=== PATIENT | male | born 1985 | race Caucasian/White ===

== ENCOUNTER 2018-04-06 15:32 | Emergency (ER) | payer MEDICAID ==
[~2018-04-06] VITALS: Ht 165.1 cm; Wt 59.1 kg
[2018-04-06 15:56] VITALS: BP 134/90; Ht 165.1 cm; Wt 59.1 kg
[2018-04-06 16:24] LABS: HEMATOCRIT 48.4 % (42.0-54.0); HEMOGLOBIN 17.3 g/dL (13.5-17.5); IMMATURE GRANULOCYTES 0.2 % (0-5); MCH 33.6 pg (26.0-34.0); MCHC 35.7 g/dL (31.0-37.0); MEAN PLATELET VOLUME 9.4 fL (7.4-10.4); PLATELET COUNT 238 10x3/uL (130-400); RBC 5.15 10x6/uL (4.20-6.10); RDW 12.2 % (11.5-14.5); WBC 6.4 10x3/uL (4.8-10.8)
[2018-04-06 16:36] LABS: LYMPHOCYTES 3 % (15-50); MONOCYTES 2 % (2-11); NEUTROPHILS 95 % (40-80)
[2018-04-06 16:40] LABS: ALBUMIN 4.7 g/dL (3.4-5.0); ALKALINE PHOSPHATASE 53 U/L (46-116); ALT (SGPT) 18 U/L (10-68); CALC OSMOLALITY 279 mosm/kg (275-300); CALCIUM 9.8 mg/dL (8.5-10.1); CARBON DIOXIDE 29.1 mmol/L (21.0-32.0); CHLORIDE - SERUM 101 mmol/L (98-107); GLUCOSE 101 mg/dL (74-106); POTASSIUM - SERUM 3.9 mmol/L (3.5-5.1); SODIUM 141 mmol/L (136-145); UREA NITROGEN 10 mg/dL (7-18); eGFR NON AFRICAN AMERICAN > 90 mL/min (90-120)
[2018-04-06 16:57] LABS: THYROID STIMULATING HORMONE 2.09 uIU/mL (0.36-3.74)
[2018-04-06 17:01] LABS: UDS - AMPHET NEGATIVE QUAL (NEGATIVE); UDS - BARB NEGATIVE QUAL (NEGATIVE); UDS - BENZO NEGATIVE QUAL (NEGATIVE); UDS - COCAINE NEGATIVE QUAL (NEGATIVE); UDS - OPIATE NEGATIVE QUAL (NEGATIVE); UDS - PCP NEGATIVE QUAL (NEGATIVE); UDS - THC POSITIVE QUAL (NEGATIVE)
[2018-04-06 17:04] LABS: BASOPHILS 0.2 % (0-2); EOSINOPHILS 1.4 % (0-7)
[2018-04-06 17:25] LABS: APPEARANCE CLEAR (CLEAR); BILIRUBIN NEGATIVE (NEGATIVE); COLOR YELLOW (YELLOW); GLUCOSE 500 mg/dL (NEGATIVE); KETONE NEGATIVE (NEGATIVE); NITRITE NEGATIVE (NEGATIVE); PROTEIN NEGATIVE (NEGATIVE); RED CELLS - URINE 0-5 /hpf (0-5); SPECIFIC GRAVITY 1.025 (1.005-1.020); UROBILINOGEN NORMAL (NORMAL); WHITE CELLS - URINE NSEEN /hpf (0-5)
== END 2018-04-06 17:30 | disposition home or self-care (01) ==
LOC: D.ER 15:32
PROVIDERS: Family Medicine
DX: E16.2 Hypoglycemia, unspecified (principal); F17.200 Nicotine dependence, unspecified, uncomplicated

== ENCOUNTER 2020-09-25 14:41 | Inpatient (IN) | payer SELFPAY ==
[~2020-09-25] VITALS: Ht 165.1 cm; Wt 61.2 kg
[2020-09-25 21:30] VITALS: BP 140/87
[2020-09-25 22:54] LABS: BASOPHILS 0.1 % (0-2); EOSINOPHILS 0.1 % (0-7); HEMATOCRIT 36.7 % (42.0-54.0); HEMOGLOBIN 12.5 g/dL (13.5-17.5); IMMATURE GRANULOCYTES 0.3 % (0-5); LYMPHOCYTE ABS# 1.48 10x3/uL (1.32-3.57); LYMPHOCYTES 14.7 % (15-50); MCH 32.7 pg (26.0-34.0); MCHC 34.1 g/dL (31.0-37.0); MCV 96.1 fL (80.0-100.0); MEAN PLATELET VOLUME 9.5 fL (7.4-10.4); MONOCYTES 7.9 % (2-11); NEUTROPHIL ABS# 7.73 10x3/uL (1.78-5.38); NEUTROPHILS 76.9 % (40-80); PLATELET COUNT 240 10x3/uL (130-400); RBC 3.82 10x6/uL (4.20-6.10); RDW 12.8 % (11.5-14.5); WBC 10.1 10x3/uL (4.8-10.8)
[2020-09-25 23:07] LABS: ALBUMIN 3.3 g/dL (3.4-5.0); ALKALINE PHOSPHATASE 56 U/L (30-120); ALT (SGPT) 31 U/L (10-68); BILIRUBIN - TOTAL 0.53 mg/dL (0.2-1.3); CALC OSMOLALITY 279 mosm/kg (275-300); CALCIUM 8.3 mg/dL (8.5-10.1); CARBON DIOXIDE 27.5 mmol/L (21.0-32.0); CHLORIDE - SERUM 105 mmol/L (98-107); GLUCOSE 117 mg/dL (74-106); LIPASE 59 U/L (73-393); POTASSIUM - SERUM 3.9 mmol/L (3.5-5.1); PROTEIN - SERUM 6.6 g/dL (6.4-8.2); SODIUM 139 mmol/L (136-145); UREA NITROGEN 16 mg/dL (7-18); eGFR NON AFRICAN AMERICAN > 90 mL/min (90-120)
[2020-09-26] VITALS (7 sets, daily range): BP systolic 122–148; BP diastolic 77–88; BMI 29.0
[2020-09-26 05:03] LABS: BASOPHILS 0.1 % (0-2); EOSINOPHILS 0.4 % (0-7); HEMATOCRIT 37.3 % (42.0-54.0); HEMOGLOBIN 12.6 g/dL (13.5-17.5); IMMATURE GRANULOCYTES 0.5 % (0-5); LYMPHOCYTE ABS# 1.64 10x3/uL (1.32-3.57); LYMPHOCYTES 20.6 % (15-50); MCH 32.6 pg (26.0-34.0); MCHC 33.8 g/dL (31.0-37.0); MCV 96.6 fL (80.0-100.0); MEAN PLATELET VOLUME 9.7 fL (7.4-10.4); NEUTROPHIL ABS# 5.67 10x3/uL (1.78-5.38); NEUTROPHILS 71.4 % (40-80); PLATELET COUNT 227 10x3/uL (130-400); RBC 3.86 10x6/uL (4.20-6.10); RDW 12.8 % (11.5-14.5)
[2020-09-26 05:15] LABS: APTT 27.6 SECONDS (22.8-39.4); INR 1.23 (0.85-1.17); PROTIME 14.4 SECONDS (11.6-15.0)
[2020-09-26 05:31] LABS: ALKALINE PHOSPHATASE 47 U/L (30-120); ALT (SGPT) 30 U/L (10-68); BILIRUBIN - TOTAL 0.71 mg/dL (0.2-1.3); CALC OSMOLALITY 278 mosm/kg (275-300); CALCIUM 8.2 mg/dL (8.5-10.1); CARBON DIOXIDE 28.5 mmol/L (21.0-32.0); CHLORIDE - SERUM 105 mmol/L (98-107); CREATINE KINASE 758 UL (21-232); CREATININE - SERUM 0.9 mg/dL (0.6-1.3); GLUCOSE 99 mg/dL (74-106); MAGNESIUM - SERUM 1.9 mg/dL (1.8-2.4); PHOSPHOROUS 3.6 mg/dL (2.5-4.9); PROTEIN - SERUM 6.3 g/dL (6.4-8.2); SODIUM 140 mmol/L (136-145); UREA NITROGEN 13 mg/dL (7-18); eGFR NON AFRICAN AMERICAN > 90 mL/min (90-120)
[2020-09-26 06:03] LABS: CKMB 3.1 U/L (0.0-3.6)
--- NOTE | 2020-09-26 08:00 | NUR ---
PT RECEIVED AWAKE SITTING UP IN BED, COMPLAINTS OF PAIN AT 10/10. UNABLE TO TAKE DEEP BREATH. PAIN MEDS GIVEN, INCENTIVE SPIROMETRY GIVEN AND INSTRUCTED ON USE.
--- NOTE | 2020-09-26 10:00 | NUR ---
DR [place] IN ROOM PLACING CHEST TUBE AT PRESENT.
--- NOTE | 2020-09-26 13:28 | NUR ---
PT WITH COMPLAINTS OF SOB. UNABLE TO TAKE DEEP BREATH. ASSISTED TO STAND WHICH HELPS TO COUGH. SPIT UP SOME THICK, BLOODY SPUTUM. CALL PLACED FOR LIDO PATCH.
--- NOTE | 2020-09-26 22:40 | NUR ---
INITIAL ROUNDS COMPLETED AT 191 HRS. BROTHER AT BEDSIDE. ENCOURAGED PT TO COUGH AND DEEP BREATH EVERY HOUR WHILE AWAKE. SPLINTING DEMONSTRATED. PT STATED UNDERSTANDING. EXPLAINED RATIONALE FOR COUGHING AND DEEP BREATHING TO PREVENT PNEUMONIA. TYENOL #3 PO GIVEN AT 1945 HRS FOR C/O SVERE CP. ASSESSMENT COMPLETED AT 2009 HRS. VSS. SR PER CM HR 91. ALERT AND ORIENTED TO PERSON, PLACE AND TIME. [place]KE. PALPABLE PERIPHERAL PULSES. IV TO LFA SL. LUNGS CTA R SIDE, VERY DIMINISHED L SIDE. PT DECLINES TO WEAR SLING TO L ARM FOR L SCAPULA FX. RATIONALE EXPLAINED. L SIDE VERY TENDER. NO FLAIL CHEAT NOTED. [facility] CT TO L SIDE AT 20CM SUCTION. SCANT 5CC OF BLOODY DRAINAGE NOTED. ASSISTED TO BR AT 1954 HRS. VOIDEDMODERATE AMOUNT OF YELLOW URINE. ASSISTED BACK TO BED. MORPHNE 4MG SIVP GINVE IV TO LFA FOR C/O CP 03/08. PT CURRENTLY WATCHING TV. CALL LIGHT WITHIN REACH.
--- NOTE | 2020-09-27 00:45 | NUR ---
PT RESTING WIH EYES CLOSED. RESP EVEN AND REGULAR. CALL LIGHT WITHIN REACH.
[2020-09-27 00:59] VITALS: BP 132/89
--- NOTE | 2020-09-27 02:22 | NUR ---
PT RESTING WITH EYES CLOSED. RESP EVEN AND REGULAR. CALL LIGHT WITHIN REACH.
--- NOTE | 2020-09-27 04:25 | NUR ---
PT STTED TOOK SEVERAL SLOW, DEEP BREATHS. HAS C/O L SIDED CP WITH MOVEMENT AND INSPIRATION. TORADOL 30MG IVP GIVEN. CALL LIGHT WITHIN REACH.
[2020-09-27 05:47] VITALS: BP 129/91
--- NOTE | 2020-09-27 06:29 | NUR ---
VSS THROUGHOUT NGIHT. SR PER CM. PT STATES PAIN MEDS MAKES PAIN BEARABLE. NEEDS MET; WILL CONTINUE TO MONITOR.
[2020-09-27 06:46] LABS: BASOPHILS 0.1 % (0-2); EOSINOPHILS 0.6 % (0-7); HEMOGLOBIN 13.9 g/dL (13.5-17.5); IMMATURE GRANULOCYTES 0.2 % (0-5); LYMPHOCYTE ABS# 1.68 10x3/uL (1.32-3.57); LYMPHOCYTES 20.2 % (15-50); MCH 32.7 pg (26.0-34.0); MCHC 33.1 g/dL (31.0-37.0); MONOCYTES 8.9 % (2-11); PLATELET COUNT 248 10x3/uL (130-400); RBC 4.25 10x6/uL (4.20-6.10); RDW 13.1 % (11.5-14.5); WBC 8.3 10x3/uL (4.8-10.8)
[2020-09-27 06:54] LABS: MCV 98.8 fL (80.0-100.0)
--- NOTE | 2020-09-27 07:00 | NUR ---
RECIEVED REPORT. ASSUMED CARE OF PATIENT. PATIENT SITTING UP IN BED WITH EYES CLOSED, EASILY AROUSED. WHITE BOARD UPDATED, BEDSIDE SHIFT REPORT COMPLETE. CHEST TUBE TO SUCTION, MARKED AT 11ML THIS AM. DENIES NEEDS. NO DISTRESS.
[2020-09-27 07:50] LABS: ALBUMIN 3.5 g/dL (3.4-5.0); ALKALINE PHOSPHATASE 55 U/L (30-120); ALT (SGPT) 30 U/L (10-68); BILIRUBIN - TOTAL 1.15 mg/dL (0.2-1.3); CALC OSMOLALITY 276 mosm/kg (275-300); CALCIUM 9.2 mg/dL (8.5-10.1); CARBON DIOXIDE 28.5 mmol/L (21.0-32.0); CHLORIDE - SERUM 101 mmol/L (98-107); GLUCOSE 97 mg/dL (74-106); PHOSPHOROUS 3.9 mg/dL (2.5-4.9); POTASSIUM - SERUM 4.1 mmol/L (3.5-5.1); PROTEIN - SERUM 7.6 g/dL (6.4-8.2); SODIUM 139 mmol/L (136-145); eGFR NON AFRICAN AMERICAN > 90 mL/min (90-120)
[2020-09-27 07:52] LABS: UREA NITROGEN 9 mg/dL (7-18)
[2020-09-27 08:26] VITALS: BP 124/76
--- NOTE | 2020-09-27 08:56 | NUR ---
patient off unit via wheelchair to CT at this time. no distress.
--- NOTE | 2020-09-27 12:00 | NUR ---
D/C RT FA IV WITH CATHETER TIP INTACT. NEW 20G IV STARTED TO RT WRIST X1 STICK. PT TOLERARED WELL.
--- NOTE | 2020-09-27 13:49 | NUR ---
AWAITING TO GO TO THE OR FOR CHEST TUBE REPLACEMENT. 02 @ 2L/MIN APPLIED VIA NASAL CANULA. PATIENT O2 SAT AT 86% PRIOR TO O2 ADMINISTRATION. O2 SAT 96% AT THIS TIME.
--- NOTE | 2020-09-27 14:31 | NUR ---
NON REBREATHER APPLIED UNTIL PATIENT TAKEN TO OR FOR CHEST TUBE REPLACEMENT PER .
--- NOTE | 2020-09-27 14:51 | NUR ---
MEDICATED FOR PAIN. NO DISTRESS.
[2020-09-27 15:20] VITALS: BP 123/81
--- NOTE | 2020-09-27 19:54 | NUR ---
PT BACK FORM OR AT 1930 HRS. PT DROWSY. NS AT 75CC TO R WRIST. [facility] CT AT 20CM SUCTION WITH SCANT BLOODY DRAINAGE NOTED. FAMILY AT BEDSIDE.
[2020-09-27 21:01] VITALS: BP 131/53
--- NOTE | 2020-09-28 00:04 | NUR ---
ASSESSMENT COMPLETED AT 2030 HRS. VSS. SR PER CM HR 72. ALERT AND ORIENTED TO PERSON, PLACE AND TIME. [place]. PALPABLE PERIPHERAL PULSES. V TO R WRIST WITH NSA T 75CC/HR. IV PATETN. [facility] CT AT 20CM SUCTION WITH SCANT BLOODY DRAINAGE NOTED. BEDBATH SONE, BED LINENS CHANGED AFTER ASSESSMENT. CHEST TUBE LOOSE AT CONNECTOR SITE. CONNECTOR REHOOKED TO CT AND SITE REINFORCED WITH TAPE. PT DENIED ANY SOB. O2 SAT 95% ON RM AIR. PT CURRENTLY WATCHING TV. CALL LIGHT WITHIN REACH.
--- NOTE | 2020-09-28 00:47 | NUR ---
MORPHNE 4MG SIVP GIVEN FOR C/O CP. PT USING IS, COUGH AND DEEP BREATHING.
[2020-09-28 03:33] VITALS: BP 141/82
--- NOTE | 2020-09-28 03:54 | NUR ---
L ARM IN SLING PER PT. PT STATES IT STABILIZES HIS ARM. TORADOL 30MG IVP GIVEN AT 0320 HRS. FOR C/O CP. SMALL AIR LEAK NOTED IN [facility] FROM CT. CALL LIGHT WITHIN REACH.
[2020-09-28 06:04] LABS: BASOPHILS 0 % (0-2); EOSINOPHILS 0 % (0-7); HEMATOCRIT 36.9 % (42.0-54.0); HEMOGLOBIN 12.8 g/dL (13.5-17.5); IMMATURE GRANULOCYTES 0.2 % (0-5); LYMPHOCYTE ABS# 0.34 10x3/uL (1.32-3.57); LYMPHOCYTES 5.1 % (15-50); MCH 33.2 pg (26.0-34.0); MCHC 34.7 g/dL (31.0-37.0); MEAN PLATELET VOLUME 9.8 fL (7.4-10.4); MONOCYTES 2.9 % (2-11); NEUTROPHIL ABS# 6.12 10x3/uL (1.78-5.38); NEUTROPHILS 91.8 % (40-80); PLATELET COUNT 230 10x3/uL (130-400); RBC 3.85 10x6/uL (4.20-6.10); RDW 12.2 % (11.5-14.5); WBC 6.7 10x3/uL (4.8-10.8)
[2020-09-28 06:09] LABS: MCV 95.8 fL (80.0-100.0)
--- NOTE | 2020-09-28 06:11 | NUR ---
VSS. PT STAED PAIN TOLERABLE WITH PAIN MEDS. NEEDS MET; WILL CONTINUE TO MONITOR.
[2020-09-28 06:43] LABS: ALBUMIN 3.1 g/dL (3.4-5.0); ALKALINE PHOSPHATASE 48 U/L (30-120); ALT (SGPT) 27 U/L (10-68); BILIRUBIN - TOTAL 0.48 mg/dL (0.2-1.3); CALC OSMOLALITY 275 mosm/kg (275-300); CALCIUM 8.9 mg/dL (8.5-10.1); CARBON DIOXIDE 25.6 mmol/L (21.0-32.0); CHLORIDE - SERUM 101 mmol/L (98-107); CREATININE - SERUM 0.9 mg/dL (0.6-1.3); PROTEIN - SERUM 7.2 g/dL (6.4-8.2); SODIUM 136 mmol/L (136-145); UREA NITROGEN 10 mg/dL (7-18); eGFR NON AFRICAN AMERICAN > 90 mL/min (90-120)
[2020-09-28 06:55] LABS: GLUCOSE 187 mg/dL (74-106); PHOSPHOROUS 2.7 mg/dL (2.5-4.9)
--- NOTE | 2020-09-28 07:00 | NUR ---
RECEIVED REPORT. ASSUMED CARE OF PATIENT. PATIENT SITTING TO SIDE OF BED, CHEST TUBE NOTED TO HAVE SMALL AIR LEAD AT TIMES. 52ML OUT IN CHEST TUBE. IV FLUIDS INFUSING ORDERED. NO DISTRESS. CALL LIGHT WITHIN REACH.
--- NOTE | 2020-09-28 07:27 | NUR ---
MEDICATED FOR PAIN. NO DISTRESS.
[2020-09-28 08:27] VITALS: BP 135/74
--- NOTE | 2020-09-28 11:01 | NUR ---
MEDICATED FOR PAIN AT THIS TIME. NO DISTRESS.
[2020-09-28 12:10] VITALS: BP 134/84
--- NOTE | 2020-09-28 13:27 | OP ---
PATIENT NAME: PARKER JOHNSON MEDICAL RECORD: [id number] LOCATION:D.M2 [id number].2124 ADMISSION DATE:09/26/20 SURGEON: CATARINO ROJAS MD DATE OF OPERATION: 09/27/2020 PREOPERATIVE DIAGNOSIS: Dislodged left-sided chest tube. POSTOPERATIVE DIAGNOSIS: Dislodged left-sided chest tube. PROCEDURE: 1. Insertion of left 24-Scottish chest tube under fluoroscopic guidance. 2. Immediate surgeon interpretation of the fluoroscopic images. SURGEON: Catarino Rojas MD SPRING CLIPPER: None. BLOOD LOSS: Minimal. ANESTHESIA: General. COMPLICATIONS: None. The risks, possible complications, and alternatives of the procedure were explained to the patient. He elects to proceed. No radiologist was present for this procedure. Static fluoroscopic images were obtained and are kept in the PACS system. The surgeon interpretation of the radiographic images is dictated within the body of this operative note. OPERATIVE COURSE: The patient was conveyed to the operating room electively on 09/27/2020. General anesthesia was induced by the anesthesia staff. The left chest tube was removed. The left chest was sterilely prepped and draped. I entered the left hemithorax over a rib. I then advanced a 24-Scottish chest tube. Initially, it had trajectory more toward the mediastinum, but I was able to manipulate it under fluoroscopy so that end of the chest tube was at the apex of the left hemithorax. It was sutured in place with a 2-0 nylon. A sterile dressing was applied. The chest tube was then attached to suction. TRANSINT:[id number] Voice Confirmation ID: [id number] DOCUMENT ID: [id number] CATARINO ROJAS MD at 1327 CC: [id number] DICTATION DATE: 09/27/201936 BURRER HAND: 09/28/20 0047 ADM IN [facility] [address] [place] [address]
--- NOTE | 2020-09-28 15:04 | NUR ---
SCDs REFUSED AT THIS TIME. PATIENT IS FREQUENTLY UP/DOWN AND REPOSITIONING FOR COMFORT AND LIKES TO KEEP LEGS "SAMOAN STYLE" OR ONE FOLDED AND DIFFICULT TO KEEP SCS ON. PATIENT IS RECEIVING LOVENOX. EDUCATION PROVIDED REGARDING SCD USE HELPS PREVENT DVT FORMATION. PATIENT VERBALIZED UNDERSTANDING OF EDUCATION PROVIDED AND CONTINUE TO NOT WANT TO WEAR THEM.
--- NOTE | 2020-09-28 15:43 | NUR ---
MEDICATED FOR PAIN AND REINFORCED TAPE TO LEFT CHEST TUBE AREA AT THIS TIME.
[2020-09-28 16:06] VITALS: BP 113/71
--- NOTE | 2020-09-28 17:16 | NUR ---
MEDICATED FOR PAIN AT THIS TIME. NO DISTRESS.
[2020-09-28 22:24] VITALS: BP 92/45
--- NOTE | 2020-09-28 23:17 | NUR ---
INITIAL ROUNDS COMPLETED AT 191 HRS. SISTER AT BEDSIDE. NO DISTRESS NOTED.ASSESSMENT COMPLETED AT [address] PER CM HR 104. ALERT AND ORIENTED TO PERSON, PLACE AND TIME. [place]. PALPABLE PERIPHERAL PULSES. IV TO RFA SL. LUNG DIMINISHED . L ARM IN SLING. CT TO 20CM SUCTION. SCANT BLOODY DRAINAGE NOTED. TORADOL 30MG IVP GIVEN AT THAT TIME. PM MEDS GIVEN AT 210 HRS INCLUDING T-3 FOR C/O SEVERE CP. PT STATED HE WAS HAVING TROUBLE BREATHING. [facility] CONTAINER BUBBLING. CT CHECKED AND TUBE UNHOOKED. REATTACHED TUBE AND REINFORCED DRESSING. PT STATED SOB EASING. NO AIR LEAK NOTED IN [facility]. PT CURRENTLY DROWSY BUT STATES PAIN IS TOLERABLE. DENIES ANY SOB. CALL LIGHT WITHIN REACH.
--- NOTE | 2020-09-29 01:15 | NUR ---
PT RESTING WITH EYES CLOSED. RESP EVEN AND REGULAR. PT WOKE TO VERBAL STIMULI. DENIES NEED FOR PAIN MEDS AT THIS TIME. NO AIR LEAK NOTED TO [facility]. CALL LIGHT WITHIN REACH.
--- NOTE | 2020-09-29 02:49 | NUR ---
PT RESTING WITH EYES CLOSED. RESP EVEN AND REGULAR. CALL LIGHT WITHIN REACH.
--- NOTE | 2020-09-29 03:45 | NUR ---
PT RESTING WITH EYES CLOSED. RESP EVEN AND REGULAR. CALL LIGHT WITHIN REACH.
--- NOTE | 2020-09-29 05:21 | NUR ---
PT WOKE UP AT 0440 HRS YELLING LOUDLY THAT HE WAS IN EXCRUTIATING PAIN AND THAT SOMETHING WAS WRONG. MORPHINE 4MG SIVP GIVEN. VSS. O2 SAT 94% ON RA. NO AIR LEAK IN [facility]. CT SECURED. NO CHANGE IN BREATH SOUNDS NOTED. PT STATED AT 0515 THAT PAIN WAS NOW 9/10. PT CALMER. CXRAY DONE. TORADOL 30MG IVP GIVEN. L ARM IN SLING AND SUPPORTED ON 2 TOWELS. CALL LIGHT WITHIN REACH.
[2020-09-29 05:22] VITALS: BP 108/69
--- NOTE | 2020-09-29 06:26 | NUR ---
VSS. SR PER CM. PT PRESENTLY RESTING WITH EYES CLOSED. RESP EVEN AND REGULAR. CALL LIGHT WITHIN REACH.
--- NOTE | 2020-09-29 07:00 | NUR ---
RECEIVED REPORT. ASSUMED CARE OF PATIENT. CALL LIGHT WITHIN REACH. PATIENT SITTING UP IN BED WITH EYES CLOSED. RESP EVEN AND UNLABORED. CHEST TUBE TO SUCTION. WHITE BOARD UPDATED, BEDSIDE SHIFT REPORT COMPLETE. NO ACUTE DISTRESS.
[2020-09-29 07:52] LABS: BASOPHILS 0.1 % (0-2); HEMATOCRIT 33.6 % (42.0-54.0); HEMOGLOBIN 11.2 g/dL (13.5-17.5); IMMATURE GRANULOCYTES 0.4 % (0-5); LYMPHOCYTES 13.9 % (15-50); MCH 32.6 pg (26.0-34.0); MCHC 33.3 g/dL (31.0-37.0); MCV 97.7 fL (80.0-100.0); MEAN PLATELET VOLUME 9.7 fL (7.4-10.4); MONOCYTES 8.4 % (2-11); NEUTROPHIL ABS# 5.24 10x3/uL (1.78-5.38); NEUTROPHILS 73.2 % (40-80); PLATELET COUNT 225 10x3/uL (130-400); RBC 3.44 10x6/uL (4.20-6.10); RDW 12.6 % (11.5-14.5); WBC 7.2 10x3/uL (4.8-10.8)
[2020-09-29 08:17] LABS: ALBUMIN 2.8 g/dL (3.4-5.0); ALKALINE PHOSPHATASE 46 U/L (30-120); ALT (SGPT) 25 U/L (10-68); BILIRUBIN - TOTAL 0.59 mg/dL (0.2-1.3); CALCIUM 8.7 mg/dL (8.5-10.1); CARBON DIOXIDE 28.6 mmol/L (21.0-32.0); CHLORIDE - SERUM 107 mmol/L (98-107); CREATININE - SERUM 0.9 mg/dL (0.6-1.3); MAGNESIUM - SERUM 2.1 mg/dL (1.8-2.4); POTASSIUM - SERUM 4.1 mmol/L (3.5-5.1); PROTEIN - SERUM 6.2 g/dL (6.4-8.2); SODIUM 141 mmol/L (136-145); eGFR NON AFRICAN AMERICAN > 90 mL/min (90-120)
[2020-09-29 08:19] LABS: CALC OSMOLALITY 281 mosm/kg (275-300); GLUCOSE 94 mg/dL (74-106); PHOSPHOROUS 3.9 mg/dL (2.5-4.9); UREA NITROGEN 16 mg/dL (7-18)
--- NOTE | 2020-09-29 10:55 | NUR ---
MEDICATED FOR PAIN AT THIS TIME.
--- NOTE | 2020-09-29 12:02 | NUR ---
MEDICATED FOR PAIN AT THIS TIME. PATIENT OOB TO CHAIR AT BEDSIDE.
--- NOTE | 2020-09-29 15:00 | NUR ---
MEDICATED FOR PAIN AT THIS TIME. NO DISTRESS. FAMILY AT BEDSIDE.
[2020-09-29 22:25] VITALS: BP 118/67
[2020-09-30] VITALS: BP 116/69
--- NOTE | 2020-09-30 04:16 | NUR ---
I have reviewed this patient and I concur with the Shift Assessment completed by the Licensed Practical Nurse today this shift.
[2020-09-30 05:16] LABS: BASOPHILS 0.3 % (0-2); EOSINOPHILS 5.8 % (0-7); HEMATOCRIT 34.9 % (42.0-54.0); HEMOGLOBIN 11.5 g/dL (13.5-17.5); IMMATURE GRANULOCYTES 0.4 % (0-5); LYMPHOCYTE ABS# 1.36 10x3/uL (1.32-3.57); LYMPHOCYTES 19.3 % (15-50); MCH 32.5 pg (26.0-34.0); MCV 98.6 fL (80.0-100.0); MEAN PLATELET VOLUME 9.5 fL (7.4-10.4); MONOCYTES 10.2 % (2-11); PLATELET COUNT 257 10x3/uL (130-400); RBC 3.54 10x6/uL (4.20-6.10); RDW 12.9 % (11.5-14.5)
[2020-09-30 05:30] LABS: ALBUMIN 2.8 g/dL (3.4-5.0); ALKALINE PHOSPHATASE 55 U/L (30-120); ALT (SGPT) 30 U/L (10-68); BILIRUBIN - TOTAL 0.42 mg/dL (0.2-1.3); CALC OSMOLALITY 275 mosm/kg (275-300); CALCIUM 8.9 mg/dL (8.5-10.1); CARBON DIOXIDE 28.5 mmol/L (21.0-32.0); CHLORIDE - SERUM 100 mmol/L (98-107); CREATININE - SERUM 1.1 mg/dL (0.6-1.3); GLUCOSE 96 mg/dL (74-106); MAGNESIUM - SERUM 2.1 mg/dL (1.8-2.4); PHOSPHOROUS 4.8 mg/dL (2.5-4.9); POTASSIUM - SERUM 4.5 mmol/L (3.5-5.1); PROTEIN - SERUM 6.7 g/dL (6.4-8.2); SODIUM 137 mmol/L (136-145); UREA NITROGEN 19 mg/dL (7-18); eGFR NON AFRICAN AMERICAN 82 mL/min (90-120)
[2020-09-30 08:00] VITALS: BP 124/74
[2020-09-30 11:30] VITALS: BP 121/61
--- NOTE | 2020-09-30 12:18 | NUR ---
LEFT CHEST TUBE DCD BY Victor Manuel TOLBERT PA. RESP UN ON . WILL CONT. TO MONITOR.
[2020-09-30 15:00] VITALS: BP 125/81
[2020-09-30 21:45] VITALS: BP 140/81
[2020-10-01 01:34] VITALS: BP 124/76
--- NOTE | 2020-10-01 03:52 | NUR ---
I have reviewed this patient and I concur with the Shift Assessment completed by the Licensed Practical Nurse today this shift.
[2020-10-01 05:18] VITALS: BP 103/63
[2020-10-01 06:15] LABS: BASOPHILS 0.2 % (0-2); EOSINOPHILS 4.3 % (0-7); HEMATOCRIT 35.3 % (42.0-54.0); HEMOGLOBIN 11.7 g/dL (13.5-17.5); IMMATURE GRANULOCYTES 0.6 % (0-5); LYMPHOCYTE ABS# 0.97 10x3/uL (1.32-3.57); LYMPHOCYTES 15.5 % (15-50); MCH 32.3 pg (26.0-34.0); MCHC 33.1 g/dL (31.0-37.0); MCV 97.5 fL (80.0-100.0); MEAN PLATELET VOLUME 9.3 fL (7.4-10.4); MONOCYTES 10.7 % (2-11); NEUTROPHIL ABS# 4.29 10x3/uL (1.78-5.38); NEUTROPHILS 68.7 % (40-80); PLATELET COUNT 255 10x3/uL (130-400); RBC 3.62 10x6/uL (4.20-6.10); RDW 12.3 % (11.5-14.5); WBC 6.3 10x3/uL (4.8-10.8)
[2020-10-01 06:32] LABS: ALBUMIN 2.8 g/dL (3.4-5.0); ALKALINE PHOSPHATASE 52 U/L (30-120); ALT (SGPT) 27 U/L (10-68); BILIRUBIN - TOTAL 0.71 mg/dL (0.2-1.3); CALC OSMOLALITY 278 mosm/kg (275-300); CARBON DIOXIDE 29.9 mmol/L (21.0-32.0); CHLORIDE - SERUM 103 mmol/L (98-107); CREATININE - SERUM 0.9 mg/dL (0.6-1.3); GLUCOSE 94 mg/dL (74-106); MAGNESIUM - SERUM 2.1 mg/dL (1.8-2.4); PHOSPHOROUS 4.9 mg/dL (2.5-4.9); POTASSIUM - SERUM 4.2 mmol/L (3.5-5.1); PROTEIN - SERUM 6.9 g/dL (6.4-8.2); SODIUM 140 mmol/L (136-145); UREA NITROGEN 13 mg/dL (7-18); eGFR NON AFRICAN AMERICAN > 90 mL/min (90-120)
[2020-10-01 08:00] VITALS: BP 125/75
[2020-10-01 12:00] VITALS: BP 136/85
[2020-10-01 12:33] VITALS: Ht 165.1 cm; Wt 61.2 kg
[2020-10-01 15:30] VITALS: BP 137/88
[2020-10-01 20:37] VITALS: BP 133/72
--- NOTE | 2020-10-02 00:43 | NUR ---
I have reviewed this patient and I concur with the Shift Assessment completed by the Licensed Practical Nurse today this shift.
[2020-10-02 00:53] VITALS: BP 127/71
[2020-10-02 05:35] VITALS: BP 114/72
--- NOTE | 2020-10-02 07:10 | NUR ---
RECEIVE SHIFT REPORT. RESTING IN BED WITH EYES CLOSED. NO S/S OF DISTRESS PRESENT AT THIS TIME. ON 2L NC. ON TELEMETRY. WILL CONTINUE POC AND SAFETY PRECAUTIONS.
[2020-10-02 08:04] VITALS: BP 108/60
--- NOTE | 2020-10-02 10:23 | NUR ---
WENT IN TO TALK TO PATIENT ABOUT ANY CONCERNS HE MIGHT BE HAVING. STATES NO CONCERNS, STAFF HAS BEEN GREAT AND GOT "TO SLEEP GREAT LAST NIGHT". ONLY CONCERN IS HIS PAIN AND HE IS "TRYING TO TOUGH IT OUT" STATES THAT HE COUGHED UP A BIG MUCUS PLUG WITH PHLEM AND SLIGHT BOOD TO IT. STATES HE CAN BREATH EASIER NOW. ENCOURGED HIM TO TAKE THE IS HOME AND REALLY USE IT. REPLIES, "YEAH, I DON'T NEED TO GET PNEUMONIA". STATES THAT HE HAS HAD "LOTS OF BROKEN BONES IN HIS PAST" WHEN QUESTIONED ABOUT ANYTHING ELSE THAT MIGHT BE WRONG HE REPLIED NO, EVERYTHING HAS BEEN GOOD.
[2020-10-02] MEDS ORDERED: TYLENOL W/CODEI1 TAB (12:14)
--- NOTE | 2020-10-02 13:00 | NUR ---
D/C RIGHT AC IV, TIP INTACT. CHANGED DRESSING TO LEFT SIDE. DISCHARGE INSTRUCTIONS GIVEN VERBALLY AND HANDOUTS PROVIDED. PRESCRIPTION GIVEN FOR PAIN MEDICATION. TAKEN DOWN TO MAIN ENTRANCE VIA WHEELCHAIR TO SISTER. SLING ON LEFT ARM.
== END 2020-10-02 13:30 | disposition home or self-care (01) | DRG 200 ==
LOC: D.ER 14:41 → D.M2 18:10 → OBSVTIME 18:10 → D.MS 18:10 → D.M2 20:01
PROVIDERS: Surgery; ADMIT Emergency Medicine; ATTEND Emergency Medicine
PROC: 0W9B30Z Drainage of Left Pleural Cavity with Drainage Device, Percutaneous Approach (ICD-10-PCS; principal; 2020-09-26)
PROC: 0W9B30Z Drainage of Left Pleural Cavity with Drainage Device, Percutaneous Approach (ICD-10-PCS; 2020-09-27)
DX: S27.0XXA Traumatic pneumothorax, initial encounter (principal); S22.42XA Multiple fractures of ribs, left side, initial encounter for closed fracture; R04.2 Hemoptysis; V89.2XXA Person injured in unspecified motor-vehicle accident, traffic, initial encounter; S42.102A Fracture of unspecified part of scapula, left shoulder, initial encounter for closed fracture; J30.9 Allergic rhinitis, unspecified; F12.90 Cannabis use, unspecified, uncomplicated; D64.9 Anemia, unspecified; F10.129 Alcohol abuse with intoxication, unspecified; Z72.0 Tobacco use